=== PATIENT | female | born 1940 | race Caucasian/White ===

== ENCOUNTER 2019-09-19 06:53 | Outpatient (RCR) | payer MEDICARE, MEDICAID, SELFPAY | END 2019-10-03 00:01 | LOC: LAB 06:53 | PROVIDERS: Visit Provider Nurse Practitioner Family | DX: I10 Essential (primary) hypertension (principal); G40.909 Epilepsy, unspecified, not intractable, without status epilepticus; M62.81 Muscle weakness (generalized); E05.90 Thyrotoxicosis, unspecified without thyrotoxic crisis or storm; E55.9 Vitamin D deficiency, unspecified | CPT/HCPCS: 36415 ×2; 80048 ×2; 85025 ==

== ENCOUNTER 2019-10-26 13:27 | Outpatient (RCR) | payer MEDICARE, MEDICAID, SELFPAY | END 2019-11-03 23:59 | disposition home or self-care (01) | LOC: LAB 13:27 | PROVIDERS: Visit Provider Nurse Practitioner Family | DX: M62.81 Muscle weakness (generalized) (principal); R56.9 Unspecified convulsions | CPT/HCPCS: 80177 ==

== ENCOUNTER 2020-02-29 11:01 | Emergency (ER) | payer MEDICARE, MEDICAID, SELFPAY ==
[2020-02-29 11:04] VITALS: BP 126/78; PULSE 102; RESP 24; TEMP 37.3; O2SAT 88; BMI 27.6
--- NOTE | 2020-02-29 11:06 | XRR_ITS ---
PROCEDURE INFORMATION: Exam: XR Chest, 1 View Exam date and time: 02/29/2020 11:17 AM Age: 80 years old Clinical indication: Dyspnea; Patient HX: Audible rales, hypoxia, PT nonverbal TECHNIQUE: Imaging protocol: XR of the chest Views: 1 view. COMPARISON: CR Chest 1 [place] [id number] 11/12/2017 12:35 PM FINDINGS: Lungs: There are low lung volumes. No consolidation. Pleural space: Unremarkable. No pleural effusion. No pneumothorax. Heart/Mediastinum: Unremarkable. No cardiomegaly. Bones/joints: Unremarkable. XR/XR chest 1V portable [id number] IMPRESSION: No acute findings.
--- NOTE | 2020-02-29 11:07 | ECG_ITS ---
Measurements Intervals [place] Rate: 100 P: 42 IA: 148 QRS: -49 QRSD: 84 T: 69 QT: 347 QTc: 447 SINUS TACHYCARDIA LEFT ANTERIOR FASCICULAR BLOCK [QRS AXIS <= -45, QR IN I, RS IN II] NONSPECIFIC T-WAVE ABNORMALITY Compared to ECG 11/12/2017 12:31:09 T-wave abnormality now present Electronically Signed On 02-29-2020 16:46:58 CDT by Srinivasan Pino M.D. [id number] f
--- NOTE | 2020-02-29 11:34 | W.ED.SOB ---
HPI - SOB/Dyspnea General: Chief Complaint: Shortness of Breath/Dyspnea Stated Complaint: COUGH Time Seen by Provider: 02/29/20 11:02 History of Present Illness: HPI Narrative: Patient is a 80-year-old female sent from [facility]. The doctor there is been treating her for UTI and she got almost 2 L of fluid in the past day. Per EMS report the [facility]pc reported a sodium of 152. They feel that she is fluid overloaded and sent her to the ER for dyspnea. Her sats were 88% on oxygen on arrival. She has gurgling respirations. She is not really able to provide any history. She will nod when I ask if she is having trouble breathing. MD elicited complaint: shortness of breath Pertinent past history: congestive heart failure Onset (ago): unknown Context: recent illness Review of Systems General: Reports: ROS unobtainable due to mental status PFSH ED PFSH: Social History Smoking and tobacco status: unknown if ever smoked Physical Exam Const: GENERAL APPEARANCE: cooperative, in distress and ill appearing ORIENTATION/CONSCIOUSNESS: Yes awake OTHER: Not verbalizing HENMT: HEAD & SCALP: normal to inspection FACE & SINUS: normal facial exam Eye: GENERAL EYE: appearance normal, both eyes and all related structures Neck/C-Spine: COMMON NORMALS: supple, no meningeal signs and no JVD Chest: COMMONS NORMALS: normal inspection of the chest Resp: EFFORT & INSPECTION: Yes tachypneic (Increased work of breathing, gurgling) and Yes uses accessory muscles AUSCULTATION: rhonchi (Coarse, throughout) Cardio: COMMON NORMALS: no JVD, regular rate, regular rhythm and No murmurs present (Cardio) RATE: regular rate RHYTHM: regular rhythm GI: COMMON NORMALS: Normal to inspection, nondistended, normoactive bowel sounds present, Soft to palpation and non-tender INSPECTION: Yes normal to inspection AUSCULTATION: Yes normoactive bowel sounds PALPATION: Yes Soft to palpation Extremity: COMMON NORMALS: normal to inspection Neuro: COMMON NORMALS: moves all extremities, no focal motor deficits and no sensory deficits noted MENINGEAL SIGNS: Yes no meningeal signs Psych: COMMON NORMALS: mental status grossly normal (Curled up in bed, nods in response to some questions but is basically nonverbal with me.) Skin: COMMON NORMALS: no rashes or lesions noted and turgor normal GENERAL SKIN EXAM: no rashes or lesions noted and turgor normal Course ED course: Patient was initially in a bit of respiratory distress on arrival. EMS had treated her well however with nitro and Lasix. On reevaluation a few hours into her stay she was no longer in any respiratory distress. Her lungs are clear. She looks comfortable and is back to her baseline according to her daughter who is at the bedside. Still waiting to get a urine as she is currently being treated for UTI. Once that is done I actually think she can go back to the [facility] which is a surprise based on how she looked when she came in. Discussed that with her daughter and she is comfortable with her going back. Vital Signs: Vital signs: Vital Signs Temperature 99.2 F 02/29/20 11:04 Pulse Rate 84 02/29/20 17:53 Respiratory Rate 18 02/29/20 17:53 Blood Pressure 136/79 02/29/20 17:53 Pulse Oximetry 96 02/29/20 17:53 MDM - SOB/Dyspnea Lab Data: Labs: Lab Results 02/29/20 02/29/20 02/29/20 Range/Units 12:10 12:10 12:10 WBC 6.8 (4.0-10.0) 10^3/ uL RBC 5.83 H (4.1-5.3) 10^6/u L Hgb 15.1 (11.5-15.3) g/dL Hct 51.2 H (37.0-47.0) % MCV 87.8 (81-99) fL MCH 25.9 L (28.0-34.0) pg MCHC 29.5 L (30.0-36.0) g/dL RDW 13.2 (12.1-15.1) % Plt Count 217 (130-400) 10^3/c mm MPV 12.1 H (7.4-10.4) fL Neut % (Auto) 72.2 % Lymph % (Auto) 16.9 % [place] % (Auto) 6.7 % Eos % (Auto) 3.2 % Baso % (Auto) 0.9 % Neut # (Auto) 4.9 (1.8-7.7) 10^3/u L Lymph # (Auto) 1.2 (0.8-4.8) 10^3/u L [place] # (Auto) 0.5 (0.2-0.9) 10^3/u L Eos # (Auto) 0.2 (0.0-0.8) 10^3/u L Baso # (Auto) 0.1 (0.0-0.1) 10^3/u L Nucleated RBC % (a uto) 0 % Nucleated RBCs # 0.0 /100WBC Sodium 144 (136-145) mmol/L Potassium 3.4 L (3.5-5.1) mmol/L Chloride 106 (98-107) mmol/L Carbon Dioxide 26 (22-29) mmol/L Anion Gap 15.4 (5-19) BUN 26 H (8-23) mg/dL Creatinine 0.9 (0.5-0.9) mg/dL Glucose 106 (65-115) mg/dL Calculated Osmolal ity 295 (285-295) mOsm/k g Lactate 2.3 H (0.5-2.2) mmol/L Calcium 11.0 H (8.5-10.5) mg/dL Total Bilirubin 0.4 (0.15-1.2) mg/dL AST 60 H (0-32) U/L ALT 66 H (0-33) U/L Alkaline Phosphata se 116 H (35-105) IU/L Troponin T Baselin e (0-10) ng/mL Troponin T 120 Min [place] (0-10) ng/mL Delta Troponin T (0-10) ABS# NT-Pro-B Natriuret Pep 224 (0-450) pg/mL Total Protein 7.2 (6.6-8.7) g/dL Albumin 4.0 (3.5-5.2) g/dL Globulin 3.2 (1.3-4.6) g/dL Urine Color (Yellow) Urine Appearance (CLEAR) Urine pH (5-7) Ur Specific Gravit y (1.005-1.030) Urine Protein (Negative) Urine Glucose (UA) (Normal) Urine Ketones (Negative) Urine Blood (Negative) Urine Nitrate (Negative) Urine Bilirubin (NEGATIVE) Prot Sulfosalicyli c Acd (Negative) Urine Urobilinogen (Negative) mg/dL Ur Leukocyte [place] (Negative) Urine RBC (0-2) /hpf Urine WBC (0-5) /hpf Ur Squamous Epith Cells (0-5) Ur Transition Epit h Cell /hpf Amorphous Sediment Urine Bacteria (NONE) 02/29/20 02/29/20 02/29/20 Range/Units 12:10 14:23 15:35 WBC (4.0-10.0) 10^3/ uL RBC (4.1-5.3) 10^6/u L Hgb (11.5-15.3) g/dL Hct (37.0-47.0) % MCV (81-99) fL MCH (28.0-34.0) pg MCHC (30.0-36.0) g/dL RDW (12.1-15.1) % Plt Count (130-400) 10^3/c mm MPV (7.4-10.4) fL Neut % (Auto) % Lymph % (Auto) % [place] % (Auto) % Eos % (Auto) % Baso % (Auto) % Neut # (Auto) (1.8-7.7) 10^3/u L Lymph # (Auto) (0.8-4.8) 10^3/u L [place] # (Auto) (0.2-0.9) 10^3/u L Eos # (Auto) (0.0-0.8) 10^3/u L Baso # (Auto) (0.0-0.1) 10^3/u L Nucleated RBC % (a uto) % Nucleated RBCs # /100WBC Sodium (136-145) mmol/L Potassium (3.5-5.1) mmol/L Chloride (98-107) mmol/L Carbon Dioxide (22-29) mmol/L Anion Gap (5-19) BUN (8-23) mg/dL Creatinine (0.5-0.9) mg/dL Glucose (65-115) mg/dL Calculated Osmolal ity (285-295) mOsm/k g Lactate (0.5-2.2) mmol/L Calcium (8.5-10.5) mg/dL Total Bilirubin (0.15-1.2) mg/dL AST (0-32) U/L ALT (0-33) U/L Alkaline Phosphata se (35-105) IU/L Troponin T Baselin e 10 (0-10) ng/mL Troponin T 120 Min [place] 7.84 (0-10) ng/mL Delta Troponin T -2.16 L (0-10) ABS# NT-Pro-B Natriuret Pep (0-450) pg/mL Total Protein (6.6-8.7) g/dL Albumin (3.5-5.2) g/dL Globulin (1.3-4.6) g/dL Urine Color Brown (Yellow) Urine Appearance Turbid (CLEAR) Urine pH 8 H (5-7) Ur Specific Gravit y 1.015 (1.005-1.030) Urine Protein 1+ H (Negative) Urine Glucose (UA) Norm (Normal) Urine Ketones Negative (Negative) Urine Blood 3+ H (Negative) Urine Nitrate Negative (Negative) Urine Bilirubin Neg (NEGATIVE) Prot Sulfosalicyli c Acd Positive (Negative) Urine Urobilinogen Norm (Negative) mg/dL Ur Leukocyte [place] 2+ H (Negative) Urine RBC 15-25 H (0-2) /hpf Urine WBC Too numerous to c nt H (0-5) /hpf Ur Squamous Epith Cells 5-10 H (0-5) Ur Transition Epit h Cell 0-4 /hpf Amorphous Sediment 2+ Urine Bacteria 4+ H (NONE) EKG Data^: EKG 1: EKG Interpretation Date: 02/29/20 EKG interpretation time: 11:37 Interpretation: Sinus tachycardia with a rate of 100. Normal intervals. Normal axis. Wavy baseline. No specific ST changes consistent with ischemia. Discharge Plan Discharge Patient Disposition: [facility] Clinical Impression: Congestive heart failure Qualifiers: Heart failure type: other Qualified Code(s): I50.9 - Heart failure, unspecified UTI (urinary tract infection) Qualifiers: Urinary tract infection type: site unspecified Condition: Stable Prescriptions: New amoxicillin-pot clavulanate 875-125 mg tablet 1 tab PO BID Qty: 20 RF: 0 Discontinued doxycycline hyclate 100 mg Tablet 100 mg PO BID RF: 0 No Action potassium chloride 10 mEq Capsule, Extended Release 10 meq PO DAILY RF: 0 Miralax 17 gram Powder In Packet See Rx Instructions .ROUTE .COMPLEX RF: 0 cetirizine 5 mg Tablet 5 mg PO DAILY RF: 0 hydrocodone-acetaminophen 10-325 mg Tablet 1 tab PO Q8H PRN (Reason: Pain) RF: 0 levothyroxine 25 mcg Tablet 25 mcg PO DAILY RF: 0 famotidine 20 mg Tablet 20 mg PO BID RF: 0 Keppra 750 mg Tablet 750 mg PO BID RF: 0 Lasix 20 mg Tablet 20 mg PO DAILY RF: 0 gabapentin 100 mg Capsule 100 mg PO TID RF: 0 dextrose 5%-0.3 % sod.chloride Parenteral Solution 1 ea IV Q48H RF: 0 ketoconazole 1 % Shampoo See Rx Instructions .ROUTE .COMPLEX RF: 0 Discharge Orders: Discharge Order (Routine); Ordered 02/29/20 Ordered By: Gita Lozano Referrals: [facility] [Other] Discharge Diet: Usual diet Discharge Activity: Resume usual activity Patient Instructions: Heart Failure (ED) Discharge Date/Time: 02/29/20 22:00 Coding Level of Care Code ED [employer] Exam Comprehensive
[2020-02-29 12:04] VITALS: BP 134/80; PULSE 95; RESP 22; O2SAT 93
[2020-02-29 12:18] LABS: Basophils # 0.1 10^3/uL (0.0-0.1); Basophils % 0.9 %; Eosinophils # 0.2 10^3/uL (0.0-0.8); Eosinophils % 3.2 %; Hematocrit 51.2 % (37.0-47.0); Hemoglobin 15.1 g/dL (11.5-15.3); Lymphocytes # 1.2 10^3/uL (0.8-4.8); Lymphocytes % 16.9 %; Mean Corpuscular HGB Conc 29.5 g/dL (30.0-36.0); Mean Corpuscular Hemoglobin 25.9 pg (28.0-34.0); Mean Corpuscular Volume 87.8 fL (81-99); Mean Platelet Volume 12.1 fL (7.4-10.4); Monocytes # 0.5 10^3/uL (0.2-0.9); Monocytes % 6.7 %; Neutrophils # 4.9 10^3/uL (1.8-7.7); Neutrophils % 72.2 %; Nucleated Red Blood Cells % 0 %; Platelet Count 217 10^3/cmm (130-400); Red Blood Count 5.83 10^6/uL (4.1-5.3); Red Cell Distribution Width 13.2 % (12.1-15.1); White Blood Count 6.8 10^3/uL (4.0-10.0)
[2020-02-29 12:37] LABS: Lactate (Lactic Acid level) 2.3 mmol/L (0.5-2.2)
[2020-02-29 12:40] LABS: Troponin(5th) Baseline 10 ng/mL (0-10)
[2020-02-29 12:48] LABS: Alanine Aminotransferase 66 U/L (0-33); Alkaline Phosphatase 116 IU/L (35-105); Anion Gap 15.4 (5-19); Aspartate Amino Transferase 60 U/L (0-32); Blood Urea Nitrogen 26 mg/dL (8-23); Carbon Dioxide 26 mmol/L (22-29); Chloride 106 mmol/L (98-107); Globulin 3.2 g/dL (1.3-4.6); Glucose 106 mg/dL (65-115); NT Pro B Type Natriuretic Pept 224 pg/mL (0-450); Osmolality Calculated 295 mOsm/kg (285-295); Potassium 3.4 mmol/L (3.5-5.1); Sodium 144 mmol/L (136-145); Total Bilirubin 0.4 mg/dL (0.15-1.2); Total Protein 7.2 g/dL (6.6-8.7)
--- NOTE | 2020-02-29 13:07 | ECG_ITS ---
Measurements Intervals [place] Rate: 86 P: 44 GA: 125 QRS: -35 QRSD: 100 T: 42 QT: 353 QTc: 423 SINUS RHYTHM LEFT AXIS DEVIATION [QRS AXIS < -30] NONSPECIFIC T-WAVE ABNORMALITY Compared to ECG 11/12/2017 12:31:09 Left-axis deviation now present T-wave abnormality now present Sinus tachycardia no longer present Left anterior fascicular block no longer present Electronically Signed On 02-29-2020 16:49:32 CDT by Srinivasan Pino M.D. [id number] f
[2020-02-29 14:24] VITALS: BP 140/87; PULSE 89; RESP 18; O2SAT 98
[2020-02-29 14:53] LABS: Troponin 5 2HR 7.84 ng/mL (0-10)
[2020-02-29 14:58] LABS: Troponin 5 2HR Delta -2.16 ABS# (0-10)
[2020-02-29 15:30] VITALS: BP 146/84; RESP 18; O2SAT 99
[2020-02-29 16:02] VITALS: BP 132/71; PULSE 85; RESP 19; O2SAT 98
[2020-02-29 16:13] LABS: Add Urine Microscopic? YES; Bilirubin Urine Neg (NEGATIVE); Blood Urine 3+ (Negative); Glucose Urine UA Norm (Normal); Ketones Urine Negative (Negative); Leukocyte Esterase Urine 2+ (Negative); Nitrate Urine Negative (Negative); Protein Urine 1+ (Negative); Specific Gravity, Urine 1.015 (1.005-1.030); Sulfosalicylic Acid Urine Positive (Negative); Urine Appearance Turbid (CLEAR); Urine Color Brown (Yellow); Urobilinogen Urine Norm (Negative); pH Urine 8 (5-7)
[2020-02-29 16:17] LABS: Add Urine Culture? Yes; Amorphous Sediment Urine 2+; Bacteria Urine 4+; RBC Urine 15-25 /hpf (0-2); Transitional Epi Cells Urine 0-4 /hpf; WBC Urine TOO NUMEROUS TO CNT /hpf (0-5)
[2020-02-29] MEDS: piperacillin-tazobactam 3.375 GM in sodium chloride 0.9% (plus) 50 ML IV (16:40)
--- NOTE | 2020-02-29 17:07 | ECG_ITS ---
Measurements Intervals [place] Rate: 86 P: 40 NE: 147 QRS: -49 QRSD: 91 T: 41 QT: 369 QTc: 442 SINUS RHYTHM LEFT ANTERIOR FASCICULAR BLOCK [QRS AXIS <= -45, QR IN I, RS IN II] NONSPECIFIC T-WAVE ABNORMALITY Compared to ECG 02/29/2020 13:37:31 Left anterior fascicular block now present Left-axis deviation no longer present T-wave abnormality still present Electronically Signed On 03-01-2020 19:00:49 CDT by Robin Figueroa M.D. [id number]
--- NOTE | 2020-02-29 17:43 | PC.NURSE ---
EKG done at 1747 and shown to ER doctor
[2020-02-29 17:53] VITALS: BP 136/79; PULSE 84; RESP 18; O2SAT 96
== END 2020-02-29 22:00 | disposition skilled nursing facility (03) ==
PROVIDERS: Emergency Provider Emergency Medicine
DX: I50.9 Heart failure, unspecified (principal); N39.0 Urinary tract infection, site not specified
CPT/HCPCS: 12345; 36415; 71045; 80053; 81001; 83605; 83880; 84484; 85025; 87086; 93005; 96365; 99283; J2543